=== PATIENT | female | born 1980 | race Two or more races ===

== ENCOUNTER 2021-04-19 15:00 | Outpatient (CLI) | payer OTHER | END 2021-04-19 15:06 | disposition home or self-care (01) | LOC: LAB 15:00 → EDSEX 15:00 → LAB 15:06 | PROVIDERS: ATTEND Internal Medicine Geriatric Medicine | DX: D68.8 Other specified coagulation defects (principal) ==

== ENCOUNTER 2021-04-27 09:30 | Inpatient (IN) | payer OTHER ==
[~2021-04-27] VITALS: Ht 170.2 cm; Wt 146.0 kg
[2021-04-27] MEDS ORDERED: BIOTIN1000 MCG (10:44)
[2021-04-27] MEDS ORDERED: LIRICA (10:45)
[2021-04-27] MEDS ORDERED: CLONAZEPAM2 M1 (10:46)
[2021-04-27] MEDS ORDERED: MULTI VITAMIN1 EACH (10:47)
[2021-04-27] MEDS ORDERED: RELAFEN (10:47)
[2021-05-04] MEDS ORDERED: BUPROPION XL300 MG (14:52)
[2021-05-04] MEDS ORDERED: MAXIMUM D3325 MCG (14:52)
[2021-05-04] MEDS ORDERED: DICLOFENAC SOD100 GM (14:52)
[2021-05-04] MEDS ORDERED: RESTORIL30 MG (14:53)
[2021-05-04] MEDS ORDERED: FLONASE16 GM (14:53)
[2021-05-04] MEDS ORDERED: PREGABALIN200 MG (14:53)
[2021-05-04] MEDS ORDERED: METRONIDAZOLE45 GM (14:53)
[2021-05-04] MEDS ORDERED: NABUMETONE750 MG (14:53)
[2021-05-04] MEDS ORDERED: ANTI-ITCH28 GM (14:54)
== END 2021-05-05 20:56 | disposition home or self-care (01) | DRG 330 ==
LOC: O/R 05-03 05:27 → SURH 05-03 09:30
PROVIDERS: ADMIT Colon & Rectal Surgery; ATTEND Colon & Rectal Surgery
PROC: 0DTN4ZZ Resection of Sigmoid Colon, Percutaneous Endoscopic Approach (ICD-10-PCS; 2021-05-03)
PROC: 3E0F7SF Introduction of Other Gas into Respiratory Tract, Via Natural or Artificial Opening (ICD-10-PCS; 2021-05-03)
PROC: 0DTP4ZZ Resection of Rectum, Percutaneous Endoscopic Approach (ICD-10-PCS; principal; 2021-05-03 15:15)
DX: K59.02 Outlet dysfunction constipation (principal); K92.1 Melena